=== PATIENT | female | born 1950 | race Caucasian/White ===

== ENCOUNTER 2018-11-21 06:58 | Inpatient (IN) | payer MEDICARE ==
[~2018-11-21] VITALS: Ht 162.6 cm; Wt 76.5 kg
[~2018-11-21 06:58] MED LIST: BACITRACIN 50,000 UNIT ONE; BUPIVACAINE/EPI 0.5% 1:200K ONE; CETI10CA PO; ESTR1TAB15 PO; MULT-717 PO; OMEG-170 PO; PARO20TA4 PO; THROMBIN 5,000 UNIT VIAL TP ONE; TIZA2CAP PO; TRIA10.8 NS
[2018-11-21] MEDS ORDERED: ROCURONIUM 10MG/ML,5ML ONE (07:48)
[2018-11-21] MEDS ORDERED: PROPOFOL 10 MG/ML, 20ML ONE (07:48)
[2018-11-21] MEDS ORDERED: MIDAZOLAM 1 MG/ML, 2ML ONE (07:48)
[2018-11-21] MEDS ORDERED: FENTANYL PF 250 MCG/5ML ONE (07:48)
[2018-11-21] MEDS ORDERED: DEXAMETHASONE 4 MG/ML, 1ML ONE ×2 (07:48)
[2018-11-21] MEDS ORDERED: ONDANSETRON 2MG/ML, 2ML ONE (07:49)
[2018-11-21] MEDS ORDERED: CEFAZOLIN 1,000 MG ONE ×2 (07:49)
[2018-11-21] MEDS ORDERED: LACTATED RINGERS 1,000 ML IV SCH (08:14)
[2018-11-21] MEDS ORDERED: GABAPENTIN 300 MG CAPSULE PO ONE (08:30)
[2018-11-21] MEDS ORDERED: SCOPOLAMINE PATCH, 1.5MG PATCH.TD72 TD ONE (08:30)
[2018-11-21] MEDS ORDERED: ACETAMINOPHEN 500 MG TABLET PO ONE (08:30)
[2018-11-21 08:34] VITALS: BP 145/81
[2018-11-21] MEDS ORDERED: SUCCINYLCHOLINE 20 MG/ML, 10ML ONE (09:42)
[2018-11-21] MEDS ORDERED: GLYCOPYRROLATE 0.2MG/1ML, 5ML ONE (09:42)
[2018-11-21] MEDS ORDERED: PHENYLEPHRINE 10 MG/ML ONE (09:42)
[2018-11-21] MEDS ORDERED: EPHEDRINE 50 MG/ML, 1ML ONE (09:42)
[2018-11-21 09:51] LABS: BASOPHILS # (AUTO) 0.01 x10^3/uL (0-0.1); BASOPHILS % (AUTO) 0 % (0-1); EOSINOPHILS # (AUTO) 0.09 x10^3/uL (0-0.4); EOSINOPHILS % (AUTO) 2 % (1-7); LYMPHOCYTES # (AUTO) 1.18 x10^3/uL (1-3.4); LYMPHOCYTES % (AUTO) 29 % (22-44); MD SCAN; MEAN CORPUSCULAR HEMOGLOBIN 32.3 pg (27.0-34.8); MEAN CORPUSCULAR HGB CONC 33.4 g/dL (32.4-35.8); MEAN CORPUSCULAR VOLUME 96.7 fL (80-100); MEAN PLATELET VOLUME 9.3 fL (7.4-10.4); MONOCYTES # (AUTO) 0.17 x10^3/uL (0.2-0.8); MONOCYTES % (AUTO) 4 % (2-9); NEUTROPHILS # (AUTO) 2.59 x10^3/uL (1.8-6.8); NEUTROPHILS % (AUTO) 64 % (42-75); PLATELET COUNT 102 x10^3/uL (130-400); RED BLOOD COUNT 4.82 x10^6/uL (3.82-5.3); RED CELL DISTRIBUTION WIDTH 12.7 % (9.6-15.2)
[2018-11-21] MEDS ORDERED: ONDANSETRON 2MG/ML, 2ML IV PRN (10:00)
[2018-11-21] MEDS ORDERED: ALBUTEROL/IPRATROPIUM 2.5MG/0.5MG, 3 ML NPPB PRN (10:00)
[2018-11-21] MEDS ORDERED: HYDROmorphone 2 MG/ML, 1ML IVPush PRN (10:00)
[2018-11-21] MEDS ORDERED: OXYcodone 5 MG/5 ML ORAL.SOL UDC PO PRN (10:00)
[2018-11-21] MEDS ORDERED: LORazepam 2 MG/ML, 1ML IVPush PRN (10:00)
[2018-11-21] MEDS ORDERED: FENTANYL PF 100 MCG/2ML IV PRN (10:00)
[2018-11-21] MEDS ORDERED: LABETALOL 5MG/ML, 20ML IV PRN (10:00)
[2018-11-21] MEDS ORDERED: hydrALAzine 20 MG/ML, 1ML IV PRN (10:00)
[2018-11-21] MEDS ORDERED: METOCLOPRAMIDE 5 MG/ML, 2ML IV PRN (10:00)
[2018-11-21] MEDS ORDERED: MEPERIDINE/PF 25MG/0.5ML IVPush PRN (10:00)
[2018-11-21] MEDS ORDERED: METOPROLOL 1 MG/ML, 5ML IV PRN (10:00)
[2018-11-21] MEDS ORDERED: OXYcodone 5 MG/5 ML ORAL.SOL UDC ONE (11:43)
== END 2018-11-21 13:00 | disposition home or self-care (01) | DRG 520 ==
LOC: ORIP 06:58
PROVIDERS: ADMIT Neurological Surgery; ATTEND Neurological Surgery
PROC: 01NB0ZZ Release Lumbar Nerve, Open Approach (ICD-10-PCS; 2018-11-21)
PROC: 00NY0ZZ Release Lumbar Spinal Cord, Open Approach (ICD-10-PCS; principal; 2018-11-21 10:00)
DX: M54.16 Radiculopathy, lumbar region (principal); D72.819 Decreased white blood cell count, unspecified; F41.9 Anxiety disorder, unspecified; M71.38 Other bursal cyst, other site; Z60.2 Problems related to living alone; K21.9 Gastro-esophageal reflux disease without esophagitis; D69.59 Other secondary thrombocytopenia; F32.9 Major depressive disorder, single episode, unspecified; Z86.19 Personal history of other infectious and parasitic diseases; Z80.3 Family history of malignant neoplasm of breast; Z87.11 Personal history of peptic ulcer disease; Z83.3 Family history of diabetes mellitus
CPT/HCPCS: 36415; 72100; 85025; 86850; 86870; 86900; 86902; 86922; 86923; J0690; J1100; J2250; J2405; J2704; J3010; J0330; J2370